=== PATIENT | male | born 1960 | race Caucasian/White ===

== ENCOUNTER 2016-02-18 19:36 | Outpatient (CLI) | payer BC, OTHER | END 2016-02-18 19:37 | disposition home or self-care (01) | DX: G47.33 Obstructive sleep apnea (adult) (pediatric) (principal) ==

== ENCOUNTER 2016-03-07 14:21 | Outpatient (CLI) | payer BC, OTHER | END 2016-03-07 14:22 | disposition home or self-care (01) | DX: G47.33 Obstructive sleep apnea (adult) (pediatric) (principal) ==

== ENCOUNTER 2016-04-18 15:08 | Outpatient (CLI) | payer BC, OTHER | END 2016-04-18 15:09 | disposition home or self-care (01) | DX: G47.33 Obstructive sleep apnea (adult) (pediatric) (principal) ==

== ENCOUNTER 2018-08-14 16:41 | Emergency (ER) | payer OTHER, BC ==
--- NOTE | 2018-08-14 17:08 | ED Physician Documentation ---
PD HPI SKIN - Stated complaint Stated Complaint: RT HAND SWELLING - Chief complaint Chief Complaint: Ext Problem - History obtained from History obtained from: Patient - History of Present Illness Timing - onset: Yesterday (noted pain dorsal hand while at work yesterday. Was worse with swelling of dorsum hand, and pain base 2nd finger. creaky feeling with ROM.) Timing - details: Abrupt onset, Still present Review of Systems Constitutional: denies: Fever, Chills, Myalgias Skin: denies: Rash, Abrasion (s), Laceration (s) Neurologic: denies: Focal weakness, Numbness PD PAST MEDICAL HISTORY - Past Medical History Cardiovascular: None Respiratory: Sleep apnea Endocrine/Autoimmune: Other GI: GERD, Hepatitis (autoimmune) : None HEENT: None Psych: None Musculoskeletal: None, Other (no history of gout) Derm: Eczema Other Past Medical History: autoimmune hepatitis - Past Surgical History General: Appendectomy, Colonoscopy, EGD - Present Medications Home Medications: Ambulatory Orders Medication Instructions Recorded Confirmed Calcium Carbonate/Vitamin D3 250 mg PO DAILY 10/15/15 10/15/15 [Calcium 500 + Vit D Caplet] Cholecalciferol (Vitamin D3) 1,000 unit PO DAILY 10/15/15 10/15/15 [Vitamin D3] Folic Acid/Vit Bcomp,C [B-Complex 400 mcg PO DAILY 10/15/15 10/15/15 with Vit C Tablet] Omeprazole 40 mg PO BID 10/15/15 10/15/15 Psyllium [Metamucil] 1 packet PO DAILY 10/15/15 10/15/15 Doxycycline Hyclate 100 mg PO BID #14 capsule 08/14/18 Ibuprofen 600 mg PO TID PRN #25 tablet 08/14/18 Sertraline HCl 100 mg PO 08/14/18 predniSONE [Prednisone] 2.5 mg PO 08/14/18 - Allergies Allergies/Adverse Reactions: Allergies Allergy/AdvReac Type Severity Reaction Status Date / Time No Known Drug Allergies Allergy Verified 08/14/18 16:49 - Social History Does the pt smoke?: No Smoking Status: Never smoker PD ED PE NORMAL - Vitals Vital signs reviewed: Yes - General General: Alert and oriented X 3, No acute distress, Well developed/nourished - Derm Derm: Normal color, Warm and dry - Extremities Extremities: Other (right hand dorsum with faint redness, does have swelling mainly to radial side. No sores/lesions in that area. Not warm. There is some crepitant feeling over extensor tendon with slow ROM of the finger. c/w tendonitis. ) Results - Vitals Vitals: Vital Signs - 24 hr 08/14/18 08/14/18 16:45 18:10 Temperature 36.5 C 36.6 C Heart Rate 68 66 Respiratory 16 19 Rate Blood Pressure 124/58 L 117/62 O2 Saturation 10 L 98 Oxygen O2 Source Room air - Rads (name of study) right hand Radiology: Prelim report reviewed (normal), EMP read contemporaneously, See rad report Departure - Departure Disposition: 01 Home, Self Care Clinical Impression: Right hand tendonitis Condition: Stable Record reviewed to determine appropriate education?: Yes Instructions: ED Sprain Hand Follow-Up: Joleen Flores MD [Primary Care Provider] - Prescriptions: Doxycycline Hyclate 100 mg PO BID #14 capsule Ibuprofen 600 mg PO TID PRN #25 tablet PRN Reason: Pain Comments: Limited use of the right hand for the next 3 to 5 days due to apparent hand tendinitis. Recheck if not better during that time and return if worsening. Ibuprofen 3 times a day for the next 5 to 7 days. Doxycycline twice daily for a week for concern of possible infection. Finger splint and limited use of the allred nd for the next 3 to 5 days. Forms: Activity restrictions Discharge Date/Time: 08/14/18 18:54
[2018-08-14] MEDS ORDERED: DOXYCYCLINE 100 MG TABLET PO STA (17:50)
[2018-08-14] MEDS: NAPROXEN 250 MG TABLET PO STA ×2 (17:54→18:03)
--- NOTE | 2018-08-14 18:00 | XRAY Report ---
Reason: dorsal hand pain near 2nd hear Procedure Date: 08/14/2018 Accession Number: [id number] / [id number] Procedure: XR - Hand 3 View RT CPT Code: FULL RESULT: EXAM: RIGHT HAND RADIOGRAPHY EXAM DATE: 08/14/2018 05:43 PM. CLINICAL HISTORY: Dorsal hand pain near 2nd hear. COMPARISON: None. TECHNIQUE: 3 views. FINDINGS: Bones: Normal. No fractures or bone lesions. Joints: Normal. No subluxations. Soft Tissues: Soft tissue swelling. No foreign body. IMPRESSION: Soft tissue swelling. RADIA
[2018-08-14 18:12] VITALS: BP 117/62
[2018-08-14] MEDS ORDERED: IBUPROFEN 600 MG TABLET PO STA (18:24)
== END 2018-08-14 18:54 | disposition home or self-care (01) ==
LOC: ED 16:41
DX: M77.9 Enthesopathy, unspecified (principal); M79.641 Pain in right hand
CPT/HCPCS: 73130; 99283; A9270

== ENCOUNTER 2020-07-31 15:14 | Outpatient (CLI) | payer BC, OTHER ==
--- NOTE | 2020-07-31 16:09 | XRAY Report ---
PROCEDURE: Hand 3 View RT INDICATIONS: CRUSHING INJ RIGHT HAND TECHNIQUE: 3 views of the hand(s) acquired. COMPARISON: 08/14/2018 FINDINGS: Bones: No fractures or dislocations. No suspicious bony lesions. Degenerative arthritis involving t he thumb IP joint. Soft tissues: No suspicious soft tissue calcifications. IMPRESSION: Degenerative arthritis of the thumb. No evidence of acute bony abnormality of the right hand. Reviewed by: Moo Giordano MD on 07/31/2020 3:08 PM SUZY Approved by: Moo Giordano MD on 07/31/2020 3:08 PM SUZY Station ID: [id number]
== END 2020-07-31 15:15 | disposition home or self-care (01) ==
LOC: DI.N 15:14
PROVIDERS: ATTEND Nurse Practitioner
DX: S67.21XA Crushing injury of right hand, initial encounter (principal); M18.11 Unilateral primary osteoarthritis of first carpometacarpal joint, right hand

== ENCOUNTER 2023-04-07 17:26 | Outpatient (CLI) | payer BC, OTHER ==
--- NOTE | 2023-04-08 13:44 | XRAY Report ---
PROCEDURE: Lumbar Spine 2-3V INDICATIONS: CONTUSION OF LOWER BACK AND PELVIS TECHNIQUE: 3 views of the lumbar spine were acquired. COMPARISON: None. FINDINGS: Bones: 5 [id number] vertebrae are present. There is normal bony alignment. No vertebral body compression fractures. No suspicious bony lesions. Soft tissues: Overlying bowel gas pattern is normal. No suspicious soft tissue calcifications. IMPRESSION: No acute fracture or traumatic subluxation. If pain persists with conservative management, consider further evaluation with cross-sectional imagi ng such as CT or MRI. Reviewed by: Tierra Leon MD on 04/08/2023 1:42 PM PST Approved by: Tierra Leon MD on 04/08/2023 1:42 PM PST Station ID: [id number]
== END 2023-04-07 17:27 | disposition home or self-care (01) ==
LOC: DI 17:26
PROVIDERS: ATTEND Physician Assistant Medical
DX: S30.0XXA Contusion of lower back and pelvis, initial encounter (principal)